=== PATIENT | female | born 1960 | race African-American/Black ===

== ENCOUNTER 2019-04-20 23:02 | Emergency (ER) | payer OTHER ==
[~2019-04-20] VITALS: Ht 162.6 cm; Wt 80.7 kg
[2019-04-20 23:06] VITALS: Ht 162.6 cm; Wt 80.7 kg
[2019-04-20 23:33] LABS: BASOPHIL % 0.6 % (0-2); PLATELET COUNT 282 x10^3mcL (130-400)
[2019-04-20 23:35] LABS: RED CELL DISTRIBUTION WIDTH 14.6 % (11.5-14.5)
[2019-04-20 23:44] LABS: CARBON DIOXIDE 32.6 mmol/L (21-32); CHLORIDE SERUM 101 mmol/L (98-107); CREATININE SERUM 0.9 mg/dL (0.6-1.0); GFR1 > 60 mL/min; GLUCOSE SERUM 183 mg/dL (74-106); POTASSIUM SERUM 4.6 mmol/L (3.5-5.1); SODIUM SERUM 138 mmol/L (136-145)
[2019-04-20 23:48] LABS: ALKALINE PHOSPHATASE 65 U/L (46-116); ALT/SGPT 50 U/L (14-59); AST/SGOT 22 U/L (15-37); BILIRUBIN TOTAL 0.2 mg/dL (0.20-1.00); TOTAL PROTEIN, SERUM 6.2 g/dL (6.4-8.2)
[2019-04-20 23:50] LABS: ALBUMIN 3.3 g/dL (3.4-5.0)
[2019-04-21 01:18] VITALS: BP 142/75
== END 2019-04-21 01:18 | disposition home or self-care (01) ==
LOC: ED 23:02
PROVIDERS: Emergency Medicine
DX: C71.9 Malignant neoplasm of brain, unspecified (principal); R06.02 Shortness of breath; K21.9 Gastro-esophageal reflux disease without esophagitis; Z90.711 Acquired absence of uterus with remaining cervical stump; Z91.013 Allergy to seafood; Z91.018 Allergy to other foods; Z91.041 Radiographic dye allergy status
CPT/HCPCS: J1100; J2060; J7030; Q0092

== ENCOUNTER 2020-09-12 12:13 | Emergency (ER) | payer OTHER ==
[~2020-09-12] VITALS: Ht 162.6 cm; Wt 103.0 kg
[2020-09-12 12:30] VITALS: Ht 162.6 cm; Wt 103.0 kg
[2020-09-12 13:15] VITALS: BP 158/74
== END 2020-09-12 13:15 | disposition home or self-care (01) ==
LOC: ED 12:13
DX: R20.2 Paresthesia of skin (principal); K21.9 Gastro-esophageal reflux disease without esophagitis; Z90.710 Acquired absence of both cervix and uterus; Z91.013 Allergy to seafood; Z91.041 Radiographic dye allergy status

== ENCOUNTER 2020-09-20 19:53 | Emergency (ER) | payer OTHER ==
[~2020-09-20] VITALS: Ht 160 cm; Wt 117.9 kg
[2020-09-20 20:33] VITALS: BP 177/85; Ht 160 cm; Wt 117.9 kg
[2020-09-20 23:04] LABS: CALCIUM 8.9 mg/dL (8.5-10.1); CARBON DIOXIDE 27.3 mmol/L (21-32); CHLORIDE SERUM 101 mmol/L (98-107); CREATININE SERUM 0.8 mg/dL (0.6-1.0); GFR1 > 60 mL/min; GLUCOSE SERUM 199 mg/dL (74-106); POTASSIUM SERUM 3.9 mmol/L (3.5-5.1); SODIUM SERUM 136 mmol/L (136-145)
[2020-09-20 23:09] LABS: ALT/SGPT 49 U/L (14-59); AST/SGOT 21 U/L (15-37); BILIRUBIN TOTAL 0.3 mg/dL (0.20-1.00); LIPASE 260 IU/L (73-393); TOTAL PROTEIN, SERUM 6.4 g/dL (6.4-8.2); TRIGLYCERIDES 117 mg/dL (<150)
[2020-09-20 23:12] LABS: T3 TOTAL 0.81 ng/mL
[2020-09-20 23:21] LABS: FREE T4 1.01 ng/dL (0.76-1.46); FREE THYROXINE INDEX 2.9 ug/dL (1.4-4.5); T4(THYROXINE) 7.2 ug/dL (4.7-13.3)
[2020-09-20 23:22] LABS: ALBUMIN 3.3 g/dL (3.4-5.0); CHOLESTEROL 244 mg/dL (<200); HDL CHOLESTEROL 120 mg/dL (40-60)
[2020-09-20 23:28] LABS: BASOPHIL % 0.5 % (0.2-1.3); PLATELET COUNT 310 x10^3mcL (179-408); RED CELL DISTRIBUTION WIDTH 13.4 % (12.3-17.7)
[2020-09-20 23:31] LABS: ALKALINE PHOSPHATASE 50 U/L (46-116)
== END 2020-09-21 00:36 | disposition home or self-care (01) ==
LOC: ED 19:53
PROVIDERS: Specialist
DX: M79.662 Pain in left lower leg (principal); M79.661 Pain in right lower leg; R60.0 Localized edema; Z85.3 Personal history of malignant neoplasm of breast; Z90.710 Acquired absence of both cervix and uterus; Z91.041 Radiographic dye allergy status; Z91.013 Allergy to seafood; Z91.018 Allergy to other foods
CPT/HCPCS: 82962; 83880; 84439

== ENCOUNTER 2020-10-24 14:34 | Emergency (ER) | payer OTHER ==
[~2020-10-24] VITALS: Ht 162.6 cm; Wt 99.8 kg
[~2020-10-24 14:34] MED LIST: CAPECITABINE150 MG; DECADRON4 MG PO; KEPPRA500 MG PO; NERLYNX40 MG; NORCO1 TA2 PO
[2020-10-24 14:48] VITALS: Ht 162.6 cm; Wt 99.8 kg
[2020-10-24 18:01] LABS: BASOPHIL % 1.1 % (0.2-1.3); PLATELET COUNT 295 x10^3mcL (179-408); RED CELL DISTRIBUTION WIDTH 13.8 % (12.3-17.7)
[2020-10-24 18:24] LABS: CALCIUM 9.6 mg/dL (8.5-10.1); CARBON DIOXIDE 31.3 mmol/L (21-32); CHLORIDE SERUM 102 mmol/L (98-107); CREATININE SERUM 0.9 mg/dL (0.6-1.0); GFR1 > 60 mL/min; GLUCOSE SERUM 156 mg/dL (74-106); POTASSIUM SERUM 4.1 mmol/L (3.5-5.1); SODIUM SERUM 136 mmol/L (136-145)
[2020-10-24 18:29] LABS: ALKALINE PHOSPHATASE 62 U/L (46-116); ALT/SGPT 49 U/L (14-59); AST/SGOT 28 U/L (15-37); BILIRUBIN TOTAL 0.4 mg/dL (0.20-1.00); TOTAL PROTEIN, SERUM 6.6 g/dL (6.4-8.2)
[2020-10-24 18:30] LABS: ALBUMIN 3.3 g/dL (3.4-5.0)
[2020-10-24 20:34] VITALS: BP 144/99
== END 2020-10-24 20:34 | disposition home or self-care (01) ==
LOC: ED 14:34
PROVIDERS: Emergency Medicine
DX: E86.0 Dehydration (principal); R53.1 Weakness; Z86.000 Personal history of in-situ neoplasm of breast

== ENCOUNTER 2020-10-27 21:07 | Inpatient (IN) | payer OTHER ==
[~2020-10-27] VITALS: Ht 170.2 cm; Wt 90.7 kg
[2020-10-27 21:11] VITALS: Ht 170.2 cm; Wt 90.7 kg
[2020-10-27 21:56] LABS: BASOPHIL % 1.7 % (0.2-1.3); PLATELET COUNT 302 x10^3mcL (179-408); RED CELL DISTRIBUTION WIDTH 13.8 % (12.3-17.7)
[2020-10-27 22:08] LABS: CALCIUM 9.8 mg/dL (8.5-10.1); CARBON DIOXIDE 28.7 mmol/L (21-32); CHLORIDE SERUM 96 mmol/L (98-107); CREATININE SERUM 0.8 mg/dL (0.6-1.0); GFR1 > 60 mL/min; GLUCOSE SERUM 205 mg/dL (74-106); POTASSIUM SERUM 3.7 mmol/L (3.5-5.1); SODIUM SERUM 132 mmol/L (136-145)
[2020-10-27 22:13] LABS: ALBUMIN 3.6 g/dL (3.4-5.0); ALKALINE PHOSPHATASE 72 U/L (46-116); ALT/SGPT 55 U/L (14-59); AST/SGOT 35 U/L (15-37); BILIRUBIN TOTAL 0.53 mg/dL (0.20-1.00)
[2020-10-27 23:49] LABS: microscopic required? YES; urine erythrocyte TRACE (NEGATIVE)
[2020-10-28] VITALS (13 sets, daily range): BP systolic 92–191; BP diastolic 49–101
[2020-10-28 02:13] LABS: AMPHETAMINE QUAL UR NONE DETECTED (See below)
[2020-10-28 06:19] LABS: CALCIUM 9.7 mg/dL (8.5-10.1); CARBON DIOXIDE 25.4 mmol/L (21-32); CHLORIDE SERUM 94 mmol/L (98-107); CREATININE SERUM 0.7 mg/dL (0.6-1.0); GFR1 > 60 mL/min; GLUCOSE SERUM 189 mg/dL (74-106); POTASSIUM SERUM 3.6 mmol/L (3.5-5.1); SODIUM SERUM 128 mmol/L (136-145)
[2020-10-28 07:17] LABS: BASOPHIL % 0.4 % (0.2-1.3); PLATELET COUNT 337 x10^3mcL (179-408)
[2020-10-29 05:00] VITALS: BP 156/88
[2020-10-29 07:04] LABS: BASOPHIL % 0.8 % (0.2-1.3); PLATELET COUNT 252 x10^3mcL (179-408); RED CELL DISTRIBUTION WIDTH 14.3 % (12.3-17.7)
[2020-10-29 07:54] LABS: CALCIUM 9.5 mg/dL (8.5-10.1); CARBON DIOXIDE 27.2 mmol/L (21-32); CHLORIDE SERUM 99 mmol/L (98-107); CREATININE SERUM 0.7 mg/dL (0.6-1.0); GFR1 > 60 mL/min; GLUCOSE SERUM 140 mg/dL (74-106); MAGNESIUM 2.2 mg/dL (1.8-2.4); PHOSPHOROUS 2.7 mg/dL (2.5-4.9); POTASSIUM SERUM 3.5 mmol/L (3.5-5.1); SODIUM SERUM 136 mmol/L (136-145)
[2020-10-29 08:08] VITALS: BP 188/99
[2020-10-29 10:55] VITALS: BP 165/88
[2020-10-29 13:05] VITALS: BP 164/70
[2020-10-29] MEDS ORDERED: ECO81 PO (13:42)
[2020-10-29 15:16] VITALS: BP 164/70
[2020-10-29 16:00] VITALS: BP 130/86
== END 2020-10-29 20:12 | disposition hospice, home (50) | DRG 45 ==
LOC: ED 21:07 → DU 23:37
PROVIDERS: Emergency Medicine; ADMIT Internal Medicine; ATTEND Internal Medicine
DX: I63.9 Cerebral infarction, unspecified (principal); G93.41 Metabolic encephalopathy; C78.7 Secondary malignant neoplasm of liver and intrahepatic bile duct; C79.31 Secondary malignant neoplasm of brain; D75.1 Secondary polycythemia; I47.1 Supraventricular tachycardia; E11.65 Type 2 diabetes mellitus with hyperglycemia; E87.1 Hypo-osmolality and hyponatremia; C50.919 Malignant neoplasm of unspecified site of unspecified female breast; I16.1 Hypertensive emergency; Z20.822 Contact with and (suspected) exposure to COVID-19; Z85.3 Personal history of malignant neoplasm of breast; Z90.710 Acquired absence of both cervix and uterus; I10 Essential (primary) hypertension; K21.9 Gastro-esophageal reflux disease without esophagitis; Z88.2 Allergy status to sulfonamides; Z88.3 Allergy status to other anti-infective agents; Z91.013 Allergy to seafood
CPT/HCPCS: 82962; 92526-GN; 92610-GN; 97530-GP; G0378; J0360; J2060; J2405; J3480; J3490; J7030; U0003